=== PATIENT | female | born 1960 | race Caucasian/White ===

== ENCOUNTER 2018-02-26 12:31 | Outpatient (REF) | payer OTHER, SELFPAY ==
--- NOTE | 2018-02-26 09:30 | PAPFT_PTH ---
PATIENT: Nessa Iqbal LOC: [facility] U#:[id number] AGE/SX: 57/F ROOM: RE02/26/[address]: Margi John : 1960 BED: DIS: 02/26/2018 SPEC #: [id number] RECD: 02/26/18 13:02 STATUS: SERENA RECaro #: [id number] GENE: 02/26/18 09:[address]: Margi John DEPT: [facility] Cytology RECD BY: Virgen García Tissues: 1 - CX/ENDOCX FOR PAP SMEARS Procedures: PAP THIN PREP/UVM Screening Comments: [id number] (UNSATISFACTORY FOR EVALUATION)
== END 2018-02-26 12:32 ==
LOC: NCHCN 12:31
PROVIDERS: PCP Family Medicine; Visit Provider Family Medicine
DX: Z00.00 Encounter for general adult medical examination without abnormal findings (principal); Z12.4 Encounter for screening for malignant neoplasm of cervix; Z11.51 Encounter for screening for human papillomavirus (HPV); Z01.419 Encounter for gynecological examination (general) (routine) without abnormal findings
CPT/HCPCS: 88142; 87624

== ENCOUNTER 2018-04-03 00:22 | Outpatient (CLI) | payer OTHER, SELFPAY ==
--- NOTE | 2018-04-03 15:43 | DI.MAMMO_ITS ---
SYMPTOMS/DIAGNOSIS: SCREENING, Z12.31 MAMMOGRAM: Mammograms were interpreted according to the usual protocol including computer analysis with CAD system, tomosynthesis and C view imaging. The breasts are heterogeneously dense. No dominant mass or clumped microcalcification is identified in either breast. Current examination is compared with the previous examinations including February 2017 and there has been no gross interval change in appearance in comparison with the previous studies. CONCLUSION: No specific evidence of malignancy at this time. Routine screening examinations are suggested at yearly intervals in this age group according to the ACS/ACR guidelines. Category 1, breast density category C. MQSA ASSESSMENT OF FINDINGS: Negative. Category 1. Patient will receive a letter notifying them of these results. Bi-RADS category C. The breasts are heterogeneously dense, which may obscure small masses.
--- NOTE | 2018-04-03 16:12 | DI.DEXA_ITS ---
SYMPTOM/DIAGNOSIS: SCREENING FOR OSTEOPOROSIS IN POSTMENOPAUSAL WOMAN, Z78.0 DEXA SCAN: Dexa scan was performed according to the usual protocol. Please see the worksheets on PACS. Findings for left hip scanning are T score of -.6 with left femoral neck T score of -1.2. Findings for lumbar spine scanning are T score of -2.0. Findings for left forearm scanning are T score of -1.8. CONCLUSION: Findings consistent with osteopenia according to the WHO criteria. Lateral vertebral scanogram shows no evidence of a vertebral compression fracture.
== END 2018-04-03 00:42 ==
PROVIDERS: PCP Family Medicine; Visit Provider Family Medicine
DX: M85.88 Other specified disorders of bone density and structure, other site (principal); Z78.0 Asymptomatic menopausal state; Z12.31 Encounter for screening mammogram for malignant neoplasm of breast
CPT/HCPCS: 77063; 77067; 77080

== ENCOUNTER 2018-04-30 21:19 | Emergency (ER) | payer OTHER, SELFPAY ==
[2018-04-30 21:24] VITALS: BP 117/67; PULSE 50; RESP 16; TEMP 36.8; O2SAT 97
--- NOTE | 2018-04-30 21:41 | ED.GENADUL_ITS ---
Discharge Plan Disposition Patient Disposition: HOME Condition: Good Discharge Details Chief Complaint: Orthopedic Clinical Impression: Hematoma Primary Care Provider: Margi John ED Provider: Rl Salcido Home Meds and New Rx's Prescriptions: Continue multivitamin Tablet 2 tab PO BID RF: 0 calcium carbonate-vitamin D3 [Calcium 500 + D (D3)] 500 mg(1,250mg) -125 unit Tablet 1 tab PO QID RF: 0 grape seed extract 50 mg Tablet 3 tab PO DAILY RF: 0 glucosamine sulfate [Glucosamine] 500 mg Tablet 1 tab PO BID RF: 0 omega-3 fatty acids [Fish Oil Concentrate] 1,000 mg Capsule 2 cap PO BID RF: 0 Discharge Instructions Instructions: Hematoma (ED) Additional Instructions: Feel free to return to the for any new or worsening symptoms otherwise apply ice and take [id number] Tylenol as needed for discomfort. If not improving over the next week feel free to follow-up with your primary care provider or the emergency department if you feel that there is any significant concern. Referrals: Margi John [Primary Care Provider] - (As needed for reassessment) Discharge Data Discharge Date/Time-TO BE ENTERED AT DEPARTURE: 04/30/18 21:58 Medical Decision Making Patient presenting to the emergency department for chief complaint of right thumb pain. Patient states yesterday she had been working in the yard and raking in which she took off her gloves she noticed some bruising to the distal joint of the thumb. Then throughout today she has noticed more swelling and bruising to the thumb. Patient denies any injury or known trauma. Physical exam does show some bruising to the palmar aspect of the thumb but patient has full range of motion, normal tendon exam, normal sensation, normal cap refill. 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 Patient was encouraged to apply ice and take [id number] Tylenol as needed for discomfort. After discussion of diagnosis and plan of care patient has no further needs, questions , or concerns and states clear understanding to return to the emergency department for any worsening symptoms. HPI General Mode of arrival: ambulatory . Date/Time Provider Initiated Documentation: 04/30/18 21:25 . Limitations to Documentation: no limitations . Information obtained by: patient . History of Present Illness 57 year old F presents to the emergency department with the chief complaint of right thumb pain, described as moderate, with intensity rated at 6. Quality is described as aching, and is localized to the right and upper extremity. Patient started experiencing this day(s) (1) and it has been constant. No exacerbating factors reported . Patient notes no other symptoms.. Patient did receive the following treatments prior to arrival, none Related Data Home Medications Medication Instructions Recorded Confirmed calcium carbonate-vitamin D3 1 tab PO QID 04/30/18 [Calcium 500 + D (D3)] glucosamine sulfate [Glucosamine] 1 tab PO BID 04/30/18 grape seed extract 3 tab PO DAILY 04/30/18 multivitamin 2 tab PO BID 04/30/18 04/30/18 omega-3 fatty acids [Fish Oil 2 cap PO BID 04/30/18 Concentrate] Allergies Allergy/AdvReac Type Severity Reaction Status Date / Time No Known Allergies Allergy Unverified 04/30/18 21:27 General Stated Complaint: Orthopedic KRISTINA: 4 Review of Systems Constitutional Denies body ache(s), Denies chills and Denies fever(s) Cardiovascular Denies chest pain Musculoskeletal Reports as per HPI Integumentary/Breasts Denies rash Neurologic Denies sensory deficit Hematologic/Lymphatic Denies easy bleeding and Denies easy bruising PFSH Social History Smoking/Tobacco Use Status: Never Exam Const General: cooperative, no acute distress and not ill appearing Orientation: alert, awake and oriented x3 HENMT Mouth: moist mucous membranes Resp Effort & Inspection: normal respiratory effort, able to speak in complete sentences and no respiratory distress Cardio Rate: regular rate Rhythm: regular rhythm Skin General skin exam: no rashes or lesions noted Neuro General: alert, awake, oriented x3, moves all extremities and no focal motor deficits Sensory Exam: no sensory deficits noted Extrem Right upper extremity: elbow/forearm Details: normal to inspection and normal ROM; no tenderness, wrist Details: normal to inspection and normal ROM; no tenderness and hand Details: neuromotor exam normal, neurosensory exam normal, tendon exam normal, tenderness Location: of the thumb, normal ROM of fingers and ecchymosis Location: of the thumb Location: on the palmar aspect Course Vital Signs Temperature 36.8 C 04/30/18 21:24 Pulse 50 L 04/30/18 21:24 Respiratory Rate 16 04/30/18 21:24 Blood Pressure 117/67 04/30/18 21:24 Pulse Oximetry 97 04/30/18 21:24 Temperature 36.8 C 04/30/18 21:24 Temperature Source Skin 04/30/18 21:24 Pulse 50 L 04/30/18 21:24 Respiratory Rate 16 04/30/18 21:24 Respiratory Effort Non-Labored 04/30/18 21:25 Blood Pressure 117/67 04/30/18 21:24 Blood Pressure Position Sitting 04/30/18 21:24 Pulse Oximetry 97 04/30/18 21:24 Oxygen Delivery Method Room Air 04/30/18 21:24 Oxygen Flow Rate 0 04/30/18 21:24 Pain Level 6 04/30/18 21:24
== END 2018-04-30 21:58 | disposition home or self-care (01) ==
PROVIDERS: Emergency Provider Nurse Practitioner Family; PCP Family Medicine
DX: S60.111A Contusion of right thumb with damage to nail, initial encounter (principal); X50.9XXA Other and unspecified overexertion or strenuous movements or postures, initial encounter
CPT/HCPCS: 99282

== ENCOUNTER 2019-04-25 16:08 | Outpatient (REF) | payer OTHER, SELFPAY ==
--- NOTE | 2019-04-25 15:15 | PAPFT_PTH ---
PATIENT: Nessa Iqbal LOC: [facility] U#:[id number] AGE/SX: 58/F ROOM: RE04/25/[address]: Margi John : 1960 BED: DIS: 04/25/2019 SPEC #: [id number] RECD: 04/26/19 12:48 STATUS: SERENA RECaro #: [id number] GENE: 04/25/19 15:[address]: Margi John DEPT: [facility] Cytology RECD BY: Virgen García Tissues: 1 - CX/ENDOCX FOR PAP SMEARS Procedures: PAP THIN PREP/UVM Screening Comments: [id number] (UNSATISFACTORY FOR EVALUATION)
== END 2019-04-25 16:28 ==
LOC: NCHCN 16:08
PROVIDERS: PCP Family Medicine; Visit Provider Family Medicine
DX: Z00.00 Encounter for general adult medical examination without abnormal findings (principal); Z12.4 Encounter for screening for malignant neoplasm of cervix; Z11.51 Encounter for screening for human papillomavirus (HPV)
CPT/HCPCS: 88142; 87624

== ENCOUNTER 2019-05-23 03:01 | Outpatient (CLI) | payer OTHER, SELFPAY ==
--- NOTE | 2019-05-23 09:15 | DI.MAMMO_ITS ---
EXAM: MAMMO SCREENING CLINICAL HISTORY: SCREENING, Z12.31 TECHNIQUE: Mammograms were interpreted according to the usual protocol including computer analysis w [employer] CAD system, tomosynthesis and C-view imaging. COMPARISON: March 2018 FINDINGS: The breasts are heterogeneously dense. No dominant mass or clumped microcalcification is identified in either breast. The current examination is compared with previous examinations including March 2018 and there has been no gross interval change in appearance in comparison with previous studies. IMPRESSION: No specific evidence of malignancy at this time. Routine screening examinations are suggested at year ly intervals in this age group according to the ACS ACR guidelines. Category 1, breast density catego ry C. BI-RADS Cat 1 - Negative Breast Density - Category C - Heterogeneously dense
== END 2019-05-23 03:21 ==
PROVIDERS: PCP Family Medicine; Visit Provider Family Medicine
DX: Z12.31 Encounter for screening mammogram for malignant neoplasm of breast (principal)
CPT/HCPCS: 77063; 77067

== ENCOUNTER 2019-07-04 08:09 | Day surgery (SDC) | payer OTHER, SELFPAY ==
[2019-07-04 08:26] VITALS: BP 113/72; PULSE 62; RESP 16; TEMP 36.7; O2SAT 100
[2019-07-04] MEDS: Lactated Ringers 1,000 ML 80 ML IV (08:40)
--- NOTE | 2019-07-04 10:19 | BOWEL_PTH ---
PATIENT: Nessa Iqbal LOC: [facility] U#:[id number] AGE/SX: 58/F ROOM: RE07/04/[address]: Mary Willoughby : 1960 BED: DIS: 07/04/2019 SPEC #: [id number] RECD: 07/04/19 13:05 STATUS: SERENA REQ #: [id number] GENE: 07/04/19 10:[address]: Mary Willoughby DEPT: Surgical Specimen RECD BY: Virgen García ENTERED: 07/04/19 13:06 SP TYPE: Bowel OTHR DR: Margi John Tissues: 1 - BIOPSY BOWEL Procedures: GROSS AND MICRO LEVEL 4 Comments: [id number]
--- NOTE | 2019-07-04 10:56 | W.COLOREPORT ---
Date of service: 07/04/19 Time of Service: 10:56 Colonoscopy Report Date of procedure: 07/04/19 Pre-op diagnosis general: crc screen Post-op diagnosis procedure note: other Procedure: ce adn cold polyp removal in rectun Surgeon: Mary Willoughby Anesthesia proc note operative: GETA Pathology: other Disposition: same day Prep: Miralax/Dulcolax Retraction Time: 14 mins Procedure Description: After informed consent was obtained the patient was taken to the procedure room and placed in a left decubitous position. Monitors were applied and a time out was done. The patients name, date of , procedure, allergies to medications and metal in their body was reviewed. The patient was then sedated. Once sedated and comfortable a rectal exam was done. External exam was normal. Internal exam revealed a normal sphincter tone and no palpable masses. The scope was then introduced and retrofelexed. Old hemorrhoidal tags. no active internal hemorrhoids were identified. The scope was then advanced to the cecum w/ out difficulty. There were no diverticuli or AVMs apparent. The mucosa and vasculature appears pink and healthy/normal the TI and appendiceal orifice were identified. The prep was poor- thick w/ fibrous debris. lesions smaller than 5mm may have been missed. The scope was then slowly retracted over 14 minutes back into the rectum. Polyps were removed - there was a small polyp in the rectum that was removed with a cold biting forcep. All specimens retrieved no bleeding is noted. The scope was removed and the patient was woken up and taken back to Same day surgery in stable condition. The patient tolerated the procedure well and there were no immediate complications. Follow up: The patient should follow up in [] years unless they develop changes in bowel habits or other new gastrointestinal complaints.
--- NOTE | 2019-07-04 10:57 | W.PM.DSUDISC ---
Discharge Plan Disposition Patient Disposition: HOME Condition: Good Discharge Details Reason For Visit: colon scope Attending Provider: Mary Willoughby Primary Care Provider: Margi John Home Meds and New Rx's Prescriptions: Continued multivitamin Tablet 2 tab PO BID RF: 0 calcium carbonate-vitamin D3 [Calcium 500 + D (D3)] 500 mg(1,250mg) -125 unit Tablet 1 tab PO QID RF: 0 grape seed extract 50 mg Tablet 3 tab PO DAILY RF: 0 glucosamine sulfate [Glucosamine] 500 mg Tablet 1 tab PO BID RF: 0 omega-3 fatty acids [Fish Oil Concentrate] 1,000 mg Capsule 2 cap PO BID RF: 0 Discontinued polyethylene glycol 3350 17 gram/dose powder 238 g PO ONCE Qty: 238 RF: 0 bisacodyl [Dulcolax (bisacodyl)] 5 mg tablet,delayed release (DR/EC) 5 mg PO ONCE Qty: 4 RF: 0 polyethylene glycol 3350 17 gram/dose powder 238 g PO ONCE Qty: 238 RF: 0 bisacodyl [Dulcolax (bisacodyl)] 5 mg tablet,delayed release (DR/EC) 5 mg PO ONCE Qty: 4 RF: 0 Discharge Instructions Additional Instructions: Findings: small polyp in rectum. Will send a letter in 2-3 wks w/ results and when to repeat C scope. Probably in 10 yrs time. Follow up: Please call if you develop: fevers >101.5 Nausea or Vomiting Abdominal pain that is not transient DAY SURGERY UNIT POST COLONOSCOPY INSTRUCTIONS 1. Because there will be medication in your system for the next 24 hours, you may feel a little sleepy. Your coordination will be affected. Therefore: a. Do not drive or operate dangerous equipment for 24 hours. b. Do not drink alcohol beverages for 24 hours (not even beer). c. Plan to go home and rest for the day. 2. Generally there are no restrictions on your activity after a day or so has gone by, but you may feel a bit fatigued for a few days. 3 After you arrive home you may have a light meal and return to a normal diet as you can tolerate it without feeling sick to your stomach. 4. After surgery, you may feel pain or discomfort. This should be only transient, but if it persists please contact your doctor. 5. If there are any questions regarding the findings of your procedure, please feel free to contact your doctor. 6. If you are unable to contact your doctor with a problem, contact the hospital at [phone]. 7. Continue all your regular medications unless directed otherwise. I understand the above instructions and have no questions. Signature of Patient or Responsible Adult Escort Date/Time Name of Responsible Adult Escort Signature of Nurse Date/Time Activity:: No strenuous activity or heavy lifting x24 hours Diet:: Small light meals for 24 hours Discharge Orders Discharge Orders: Discharge Order (Routine); Ordered 07/04/19 Ordered By: Mary Willoughby
[2019-07-04 11:26] VITALS: BP 119/70; PULSE 55; RESP 16; TEMP 36.1; O2SAT 100
== END 2019-07-04 12:00 | disposition home or self-care (01) ==
PROVIDERS: PCP Family Medicine; Visit Provider Surgery
PROC: 0DJD8ZZ Inspection of Lower Intestinal Tract, Via Natural or Artificial Opening Endoscopic (ICD-10-PCS; CPT 45378; principal; 2019-07-04 09:15)
DX: Z12.11 Encounter for screening for malignant neoplasm of colon (principal); K62.1 Rectal polyp
CPT/HCPCS: 45380; 88305

== ENCOUNTER 2019-07-24 11:19 | Outpatient (REF) | payer BC, SELFPAY ==
--- NOTE | 2019-07-24 09:00 | PAPFT_PTH ---
PATIENT: Nessa Iqbal [id number] AGE/SX: 58/F ROOM: RE07/24/[address]: Margi John : 1960 BED: DIS: 07/24/2019 SPEC #: [id number] RECD: 07/24/19 12:55 STATUS: SERENA RECaro #: [id number] GENE: 07/24/19 09:[address]: Margi John DEPT: [facility] Cytology RECD BY: Virgen García Tissues: 1 - CX/ENDOCX FOR PAP SMEARS Procedures: PAP THIN PREP/UVM Screening Comments: [id number] (UNSATISFACTORY FOR EVALUATION)
== END 2019-07-24 11:39 ==
LOC: NCHCN 11:19
PROVIDERS: PCP Family Medicine; Visit Provider Family Medicine
DX: Z00.00 Encounter for general adult medical examination without abnormal findings (principal); Z12.4 Encounter for screening for malignant neoplasm of cervix; Z11.51 Encounter for screening for human papillomavirus (HPV); Z01.419 Encounter for gynecological examination (general) (routine) without abnormal findings
CPT/HCPCS: 88142; 87624

== ENCOUNTER 2020-03-30 13:45 | Outpatient (REF) | payer BC, SELFPAY ==
[2020-04-02 13:36] LABS: Patient Race White; SARS-CoV-2 RNA Undetected (Undetected); SARS-CoV-2 Specimen Source Nasal
== END 2020-03-30 14:05 ==
LOC: NCHCN 13:45
PROVIDERS: PCP Family Medicine; Visit Provider Family Medicine
DX: Z20.828 Contact with and (suspected) exposure to other viral communicable diseases (principal)
CPT/HCPCS: U0003

== ENCOUNTER 2020-04-22 11:55 | Outpatient (REF) | payer BC, SELFPAY ==
[2020-04-22 22:05] LABS: HCT 38.8 % (36.0-46.0); HGB 12.6 g/dL (11.2-15.7); MCH 30.2 pg (27.0-33.0); MCHC 32.5 % (32.0-36.0); MPV 10.2 fL (8.0-11.0); Platelet Count 234 10^3/uL (130-400); RBC 4.17 10^6/uL (3.93-5.22); RDW 13.1 % (11.7-14.6); RDW-SD 44.1 fL; WBC 6.06 10^3/uL (4.4-10.8)
[2020-04-22 22:21] LABS: ALT 38 U/L (14-59); AST 26 U/L (15-37); Albumin 3.8 g/dL (3.4-5.0); Alkaline Phosphatase 63 U/L (46-116); Anion Gap 4.8 mmol/L (3-11); BUN 16 mg/dL (7-18); Bilirubin, Total 0.5 mg/dL (0.2-1.0); CO2 31.2 mmol/L (21.0-32.0); CREATININE 0.63 mg/dL (0.55-1.02); Calcium 9.2 mg/dL (8.5-10.1); Calculated LDL 106 mg/dL (<100); Chloride 107 mmol/L (98-107); Cholesterol 209 mg/dL (<200); Glucose 86 mg/dL (74-106); HDL Cholesterol 98 mg/dL (40-60); Potassium 4.6 mmol/L (3.5-5.1); Sodium 143 mmol/L (136-145); Total Protein 6.6 g/dL (6.4-8.2); Triglyceride 26 mg/dL (<150)
== END 2020-04-22 12:15 ==
LOC: NCHCN 11:55
PROVIDERS: PCP Family Medicine; Visit Provider Family Medicine
DX: Z00.00 Encounter for general adult medical examination without abnormal findings (principal); M85.80 Other specified disorders of bone density and structure, unspecified site; Z13.220 Encounter for screening for lipoid disorders; Z13.228 Encounter for screening for other metabolic disorders
CPT/HCPCS: 80053; 80061; 82306; 85027

== ENCOUNTER 2020-05-27 01:56 | Outpatient (CLI) | payer BC, SELFPAY ==
--- NOTE | 2020-05-27 | DI.MAMMO_ITS ---
EXAM: MG MAMMO SCREENING CLINICAL HISTORY: SCREENING,Z12.31 TECHNIQUE: Bilateral full field digital CC and MLO mammographic images were obtained with 3D tomosyn thesis and utilizing computer aided detection (CAD). COMPARISON: Available for comparison. FINDINGS: Masses/Architectural Distortion: None seen. Microcalcifications: No suspicious pleomorphic-type are seen. Skin Thickening/Nipple Retraction: None. IMPRESSION: 1. No significant interval change with no specific features of malignancy noted. 2. Unless there is more urgent need, screening mammography is recommended, as per [place] [employer] guidelines. BI-RADS Category 1 - Negative Breast Density - Category C - Heterogeneously dense The mammogram demonstrates the patient's breast tissue is dense. Dense breast tissue is very common a nd is not abnormal but dense breast tissue can make it harder to find cancer on a mammogram. Also, de nse breast tissue may increase their breast cancer risk. This information about the result of the [facility] mogram report was provided to the patient to raise their awareness. Use this report when you speak wi th the patient about their risks for breast cancer, which includes their family history. At that time , you may recommend for more screening tests (Ultrasound or MRI) as they might be useful based on the ir risk. A negative radiographic report should not delay biopsy if a dominant or clinically suspicious mass is present. Up to ten percent of cancers are not identified on mammography. A negative report may reinforce clinical impression. Adenosis and dense breasts may obscure an underlying neoplasm. False positive reports average 6 to 10%. Patient will receive a letter notifying them of these results.
== END 2020-05-27 02:16 ==
PROVIDERS: PCP Family Medicine; Visit Provider Family Medicine
DX: Z12.31 Encounter for screening mammogram for malignant neoplasm of breast (principal)
CPT/HCPCS: 77063; 77067

== ENCOUNTER 2021-05-05 13:54 | Outpatient (REF) | payer BC, SELFPAY ==
--- NOTE | 2021-05-05 10:00 | PAPFT_PTH ---
PATIENT: Nessa Iqbal LOC: [facility] U#:[id number] AGE/SX: 60/F ROOM: RE05/05/[address]: Margi John : 1960 BED: DIS: 05/05/2021 SPEC #: [id number] RECD: 05/06/21 12:57 STATUS: SERENA RECaro #: [id number] GENE: 05/05/21 10:[address]: Margi John DEPT: [facility] Cytology RECD BY: Virgen García Tissues: 1 - CX/ENDOCX FOR PAP SMEARS Procedures: PAP THIN PREP/UVM Screening HPV DNA PROBE Comments: [id number]
== END 2021-05-05 13:55 | disposition home or self-care (01) ==
LOC: NCHCN 13:54
PROVIDERS: PCP Family Medicine; Visit Provider Family Medicine
DX: Z12.4 Encounter for screening for malignant neoplasm of cervix (principal); Z01.419 Encounter for gynecological examination (general) (routine) without abnormal findings; Z11.51 Encounter for screening for human papillomavirus (HPV)
CPT/HCPCS: 88142; 87624

== ENCOUNTER 2022-03-24 17:52 | Outpatient (REF) | payer OTHER, SELFPAY ==
[2022-03-28 12:01] LABS: Lyme Ab w Rflx to Lyme Confirm Positive (Negative)
[2022-03-28 13:37] LABS: Lyme IgG Ab Negative (Negative); Lyme IgM Ab Positive (Negative)
== END 2022-03-24 17:53 | disposition home or self-care (01) ==
LOC: NCHCN 17:52
PROVIDERS: PCP Family Medicine; Visit Provider Nurse Practitioner Family
DX: R21 Rash and other nonspecific skin eruption (principal)
CPT/HCPCS: 86617; 86618

== ENCOUNTER 2022-05-19 15:19 | Outpatient (REF) | payer OTHER, SELFPAY ==
[2022-05-19 19:04] LABS: Vitamin D 25 Total 71.6 ng/mL (30-100)
[2022-05-19 19:09] LABS: TSH (W/Ref FT4) 1.44 uIU/mL (0.36-3.74); Vitamin B12 1151 pg/mL (193-986)
== END 2022-05-19 15:20 | disposition home or self-care (01) ==
LOC: NCHCN 15:19
PROVIDERS: PCP Family Medicine; Visit Provider Nurse Practitioner Family
DX: Z00.00 Encounter for general adult medical examination without abnormal findings (principal); E55.9 Vitamin D deficiency, unspecified; N39.3 Stress incontinence (female) (male); G60.9 Hereditary and idiopathic neuropathy, unspecified; G47.8 Other sleep disorders; M85.80 Other specified disorders of bone density and structure, unspecified site; G44.229 Chronic tension-type headache, not intractable
CPT/HCPCS: 82306; 82607; 84443

== ENCOUNTER → 2022-07-08 00:07 | Outpatient (CLI) | payer OTHER, SELFPAY ==
--- NOTE | 2022-07-08 | DI.DEXA_ITS ---
Exam(s) XR DEXA BONE DENSITY W/WO LUIZ EXAM: XR DEXA BONE DENSITY W/WO LUIZ CLINICAL HISTORY: OSTEOPENIA, M85.80, VIT D DEFICIENCY,E55.9 TECHNIQUE: COMPARISON: Comparison is 04/03/2018. FINDINGS: Lateral Spine Image: Unremarkable. No compression deformities identified. Left hip: Total T-Score: -0.8. This compares to -0.6 on the prior examination. Total Z-Score: 0.4 T- and Z-scores: Within normal limits. Lumbar Spine: Total T-Score: -2.4. This compares to -2.0 on the prior examination. Total Z-Score: -0.7 T- and Z-scores: This is consistent with osteopenia. IMPRESSION: Findings of osteopenia in the lumbar spine.
--- NOTE | 2022-07-08 | DI.MAMMO_ITS ---
Exam(s) MAMMO SCREENING EXAM: MAMMO SCREENING CLINICAL HISTORY: SCREENING, Z12.39. TECHNIQUE: Bilateral full field digital CC and MLO mammographic images were obtained with 3D tomosyn thesis and utilizing computer aided detection (CAD). COMPARISON: Prior mammograms were reviewed. FINDINGS: The fibroglandular tissue pattern is again noted be moderately dense, this somewhat decreasing the se nsitivity of the mammogram for finding hidden underlying lesions. In the left breast on the CC view there is a subtle suggestion an asymmetric 8 x 6 millimeter density located 3 cm in from the nipple, possible nodule. No obvious new right breast findings. There are no malignant-appearing microcalcification groups in either breast. There is no significant architectural distortion nor skin thickening-retraction. IMPRESSION: Dense bilateral fibroglandular tissue. Possible left breast nodule. Spot compression CC view and co mplete breast ultrasound recommended. BI-RADS Category 0 - Assessment Incomplete: Need additional imaging evaluation Breast Density - Category C - Heterogeneously dense Breast density Category C or D implies that the patient has dense breast tissue. Dense breast tissue can make it harder to find cancer on a mammogram. Dense breast tissue is also associated with an incr eased risk of breast cancer. This information about the result of the mammogram report was provided to the patient to raise their awareness. Use this report when you speak with the patient about their risks for breast cancer, which includes their family history. At that time, you may recommend additional screening tests (Ultrasoun d or MRI) as these tests may add significant information. A negative radiographic report should not delay biopsy if a dominant or clinically suspicious mass is present. Up to ten percent of cancers are not identified on mammography. A negative report may reinforce clinical impression. Adenosis and dense breasts may obscure an underlying neoplasm. False positive reports average 6 to 10%. Patient will receive a letter notifying them of these results.
== END ==
PROVIDERS: PCP Family Medicine; Visit Provider Nurse Practitioner Family
DX: M85.88 Other specified disorders of bone density and structure, other site (principal); E55.9 Vitamin D deficiency, unspecified; Z12.31 Encounter for screening mammogram for malignant neoplasm of breast; R92.8 Other abnormal and inconclusive findings on diagnostic imaging of breast
CPT/HCPCS: 77063; 77067; 77080

== ENCOUNTER 2022-08-17 02:36 | Outpatient (CLI) | payer OTHER, SELFPAY ==
--- NOTE | 2022-08-17 | DI.MAMMO_ITS ---
Exam(s) MG MAMMO SCREEN CALL BACK UNI US BREAST LT COMPLETE EXAM: MAMMO SCREEN CALL BACK UNI CLINICAL HISTORY: F/U MAMMO, R92.8,SUBTLE ASYMMETRIC DENSITY, ? NODULE. TECHNIQUE: Craniocaudal and mediolateral oblique spot compression digital Mammography views of the l eftbreast with Tomosynthesis and left breast ultrasound. COMPARISON: Recent exam of 08 July 2022 and exams back to 2012. FINDINGS: Mammography/Tomosynthesis: Masses/Architectural Distortion: None seen. Microcalcifictions: No suspicious pleomorphic-type are seen. Skin Thickening/Nipple Retraction: None. Left breast US: Echotexture: Normal appearance of the glandular tissue. Shadowing: No suspicious foci. Cyst: None. Solid lesions: None seen. Ductal dilation: None. IMPRESSION: 1. No evidence of malignancy is noted. 2. Unless there is more urgent need, follow-up screening mammography is recommended, as per [place] [employer] guidelines. 3. The findings were discussed with the patient on the date of the examination. BI-RADS Category 1 - Negative Breast Density - Category C - Heterogeneously dense A mammogram that demonstrates density of C or D indicates the patient's breast tissue is dense. Dense breast tissue is very common and is not abnormal, but dense breast tissue can make it harder to find cancer on a mammogram. Also, dense breast tissue may increase their breast cancer risk. This informa tion about the result of the mammogram report was provided to the patient to raise their awareness. U se this report when you speak with the patient about their risks for breast cancer, which includes th eir family history. At that time, you may recommend for more screening tests (Ultrasound or MRI) as t hey might be useful based on their risk. A negative radiographic report should not delay biopsy if a dominant or clinically suspicious mass is present. Up to ten percent of cancers are not identified on mammography. A negative report may reinforce clinical impression. Adenosis and dense breasts may obscure an underlying neoplasm. False positive reports average 6 to 10%. Patient will receive a letter notifying them of these results.
== END 2022-08-17 02:56 ==
PROVIDERS: PCP Nurse Practitioner Family; Visit Provider Nurse Practitioner Family
DX: Z12.31 Encounter for screening mammogram for malignant neoplasm of breast (principal); R92.8 Other abnormal and inconclusive findings on diagnostic imaging of breast
CPT/HCPCS: 76642; 77063; 77067

== ENCOUNTER 2022-12-29 15:34 | Outpatient (CLI) | payer OTHER, SELFPAY ==
[2022-12-29 15:39] LABS: Hemoglobin A1C 5.2 % (<5.7)
[2022-12-29 15:51] LABS: ALT 31 U/L (14-59); AST 25 U/L (15-37); Albumin 3.6 g/dL (3.4-5.0); Alkaline Phosphatase 70 U/L (46-116); Anion Gap 7.9 mmol/L (3-11); BUN 16 mg/dL (7-18); Bilirubin, Total 0.5 mg/dL (0.2-1.0); CO2 29.1 mmol/L (21.0-32.0); CREATININE 0.7 mg/dL (0.55-1.02); Calcium 8.9 mg/dL (8.5-10.1); Chloride 107 mmol/L (98-107); Estimated GFR 96.52 (mL/min/1.73m2); Glucose 100 mg/dL (74-106); Potassium 4.1 mmol/L (3.5-5.1); Sodium 144 mmol/L (136-145); Total Protein 6.9 g/dL (6.4-8.2)
[2022-12-30 12:55] LABS: Albumin 63.8 % (55.8-66.1); Albumin g/dL 4.1 g/dL (3.6-5.2); Total Protein 6.4 g/dL (6.3-8.2)
== END 2022-12-29 15:35 | disposition home or self-care (01) ==
LOC: LBO 15:34
PROVIDERS: PCP Nurse Practitioner Family; Visit Provider Psychiatry & Neurology Neurology
DX: G62.9 Polyneuropathy, unspecified (principal); R73.9 Hyperglycemia, unspecified
CPT/HCPCS: 36415; 80053; 83036; 84165

== ENCOUNTER 2023-05-25 10:23 | Outpatient (REF) | payer OTHER, SELFPAY ==
[2023-05-25 14:59] LABS: Absolute Basophil Count 0.06 10^3/uL (0.0-0.2); Absolute Eosinophil Count 0.07 10^3/uL (0.0-0.7); Absolute Lymphocyte Count 1.12 10^3/uL (1.2-3.4); Absolute Neutrophil Count 1.94 10^3/uL (1.2-6.7); Basophils % 1.7; HCT 38.3 % (36.0-46.0); HGB 12.7 g/dL (11.2-15.7); Lymphocytes % 32.1; MCH 30.8 pg (27.0-33.0); MCHC 33.2 % (32.0-36.0); MCV 93 fL (80-95); MPV 10.5 fL (8.0-11.0); Monocytes % 8.6; Neutrophils % 55.6; Platelet Count 262 10^3/uL (130-400); RBC 4.13 10^6/uL (3.93-5.22); RDW 13.3 % (11.7-14.6); RDW-SD 45.6 fL; WBC 3.49 10^3/uL (4.4-10.8)
[2023-05-25 15:35] LABS: Iron 103 ug/dL (50-170); Total Iron Binding Capacity 366 ug/dL (250-450); Transferrin Sat 28 % (15-50)
[2023-05-25 15:47] LABS: ALT 35 U/L (14-59); AST 31 U/L (15-37); Albumin 3.9 g/dL (3.4-5.0); Alkaline Phosphatase 65 U/L (46-116); BUN 16 mg/dL (7-18); Bilirubin, Total 0.6 mg/dL (0.2-1.0); CREATININE 0.6 mg/dL (0.55-1.02); Calcium 9.8 mg/dL (8.5-10.1); Chloride 106 mmol/L (98-107); Estimated GFR 100.17 (mL/min/1.73m2); Ferritin 29 ng/mL (8-252); Glucose 94 mg/dL (74-106); Magnesium 2.4 mg/dL (1.8-2.4); Potassium 4.4 mmol/L (3.5-5.1); Sodium 141 mmol/L (136-145); TSH (W/Ref FT4) 1.76 uIU/mL (0.36-3.74); Vitamin B12 1322 pg/mL (193-986)
[2023-05-26 11:08] LABS: Lyme Ab w Rflx to Lyme Confirm Positive (Negative)
[2023-05-26 14:53] LABS: Lyme IgG Ab Positive (Negative); Lyme IgM Ab Positive (Negative)
[2023-05-27 14:18] LABS: Anaplasma phagocytophilum Negative (Negative); B. miyamotoi PCR Negative (Negative); Babesia divergens/MO-1 Negative (Negative); Babesia duncani Negative (Negative); Babesia microti Negative (Negative); Ehrlichia chaffeensis Negative (Negative); Ehrlichia ewingii/canis Negative (Negative); Ehrlichia muris eauclairensis Negative (Negative)
== END 2023-05-25 10:24 | disposition home or self-care (01) ==
LOC: NCHCN 10:23
PROVIDERS: PCP Nurse Practitioner Family; Visit Provider Nurse Practitioner Family
DX: Z00.00 Encounter for general adult medical examination without abnormal findings (principal); R53.83 Other fatigue; G47.62 Sleep related leg cramps; G47.8 Other sleep disorders; G44.229 Chronic tension-type headache, not intractable; R10.13 Epigastric pain; G62.9 Polyneuropathy, unspecified
CPT/HCPCS: 80053; 86617; 87798; 82607; 82728; 83540; 83550; 83735; 84443; 85025; 86618

== ENCOUNTER → 2023-07-11 01:20 | Outpatient (CLI) | payer OTHER, SELFPAY ==
--- NOTE | 2023-07-11 | DI.MAMMO_ITS ---
Exam(s) MAMMO SCREENING EXAM: MAMMO SCREENING CLINICAL HISTORY: SCREENING MAMMO FOR BREAST CANCER Z12.39 TECHNIQUE: Bilateral full field digital CC and MLO mammographic images were obtained with 3D tomosyn thesis and utilizing computer aided detection (CAD). COMPARISON: 2013 through 2021 FINDINGS: Masses/Architectural Distortion: None seen. Microcalcifications: No suspicious pleomorphic-type are seen. Skin Thickening/Nipple Retraction: None. IMPRESSION: 1. No significant interval change with no specific features of malignancy noted. 2. Unless there is more urgent need, screening mammography is recommended, as per [place] [employer] guidelines. BI-RADS Category 1 - Negative Breast Density - Category C - Heterogeneously dense Breast density category C or D implies that the patient has dense breast tissue. Dense breast tissue is very common and is not abnormal but dense breast tissue can make it harder to find cancer on a ma mmogram. Also, dense breast tissue may increase their breast cancer risk. This information about the result of the mammogram report was provided to the patient to raise their awareness. Use this report when you speak with the patient about their risks for breast cancer, which includes their family hist ory. At that time, you may recommend for more screening tests (Ultrasound or MRI) as they might be us eful based on their risk. A negative radiographic report should not delay biopsy if a dominant or clinically suspicious mass is present. Up to ten percent of cancers are not identified on mammography. A negative report may reinforce clinical impression. Adenosis and dense breasts may obscure an underlying neoplasm. False positive reports average 6 to 10%. Patient will receive a letter notifying them of these results.
== END ==
PROVIDERS: PCP Nurse Practitioner Family; Visit Provider Nurse Practitioner Family
DX: Z12.31 Encounter for screening mammogram for malignant neoplasm of breast (principal)
CPT/HCPCS: 77063; 77067

== ENCOUNTER 2023-08-29 08:22 | Outpatient (CLI) | payer OTHER, SELFPAY | END 2023-08-29 08:23 | disposition home or self-care (01) | LOC: CARDOPNVT 08:22 | PROVIDERS: PCP Nurse Practitioner Family; Visit Provider Nurse Practitioner Family | DX: R07.89 Other chest pain (principal) | CPT/HCPCS: 93246 ==

== ENCOUNTER → 2023-09-07 00:01 | Outpatient (CLI) | payer OTHER, SELFPAY ==
--- NOTE | 2023-09-07 | ETT_ITS ---
APPROVED REPORT Exam: Exercise Treadmill Patient Location: Out-Patient Room/Bed: Stress Nurse: Mario Collins RN Ordering Provider:RAJ MALONEY, Contact Number: [phone] BMI: 23.95 Baseline Rhythm: Sinus Bradycardia Indications: Decreased BP and HR. Chest pressure on exertion. Atypical Chest Pain. Medical History Medical History: No history of CAD Cardiac Medications: None Allergies: No known drug allergies Cardiac Risk Factors: FHX of CAD Pretest Chest Pain Characteristics: No chest pain Exercise History: Physically active Lung Sounds: Clear to auscultation Heart Sounds: Regular Stress Test Details Test: Exercise stress testing was performed using a Krishna protocol. Rest Stress HR Resting HR Supine: 58 bpm Max Heart Rate (APMHR): 156 bpm Resting HR Standin bpm Target HR (85% APMHR): 133 bpm Max HR Achieved: 136 bpm % of APMHR: 87 Recovery HR: 75 bpm HR response to stress: Normal HR response to stress BP Resting BP Supine: 128/80 mmHg Resting BP Standin/72 mmHg Max BP: 146/84 mmHg Recovery BP: 118/76 mmHg BP response to stress: Normal blood pressure response to stress. ECG Resting ECG: Sinus Bradycardia Ectopy: None Stress ECG: Sinus Tachycardia ST Change: Inferior (upsloping) Lead(s): II, III, aVF Stage: Recovery stage [address] Deviation: 1-2 mm Arrhythmia: VPC's, APC's Comment: Frequent unifocal PVC's during stress. Recovery ECG: Sinus Rhythm Recovery ST Change: Upsloping ST depression Lead(s): II, III, aVF,, V1, aVR, aVL, V5, V6 Recovery ST Deviation: 1-2 mm Recovery Arrhythmia: PVC's Brief Bigeminy Clinical Reason for Termination: Chest pain/Anginal equivalent, Dyspnea Stress Symptoms: Chest pressure. Exercise duration: 6 min57 sec Highest Stage Reached: 3 Exercise capacity: 8.5 METs Angina Score: Non-Limiting Mackey Treadmill Score: -1.0 Rate Pressure Product: Stress ECG Conclusion 1. Resting electrocardiogram was within normal limits 2. Patient exercised on Krishna protocol and completed a workload of 8.5 METS 3. Normal heart rate blood pressure response to exercise. Patient achieved 87% of predicted heart r ate for age 4. There was no electrocardiographic evidence of myocardial ischemia 5. PVCs were noted Mackey Treadmill Score is -1.0 which is Moderate risk. Stress Test Summary STAGE Time (mins) Speed (mph) Grade (%) HR BP SpO2 SYMPTOMS METS Supine 58 128/80 97 None Standing 59 102/72 None 1 3 1.7 10 115 90 None 4.5 2 6 2.5 12 132 90 PVC's 7 3 9 3.4 14 136 Chest pressure 10 1 min recovery 121 122/72 95 Chest pressure 3 min recovery 79 146/84 98 6 min recovery 76 118/76 97
== END ==
PROVIDERS: PCP Nurse Practitioner Family; Visit Provider Nurse Practitioner Family
DX: R00.1 Bradycardia, unspecified (principal)
CPT/HCPCS: 93017

== ENCOUNTER 2023-09-21 07:34 | Outpatient (CLI) | payer OTHER, SELFPAY ==
--- NOTE | 2023-09-21 09:55 | W.CARDEVENT ---
Date of service: 09/21/23 Time of Service: 09:55 Cardiac Event Recorder Referring Provider:: Charlee Paredes Indications:: . Chest pain Cardiac Event Note: This is a cardiac event monitor reportedly ordered for chest pain. Patient was monitored for 12 days and 17 hours rhythm throughout was sinus. Average heart rate was 64. Minimum was 43, maximum 123 There were rare isolated atrial and ventricular ectopic beats There was no atrial fibrillation no high-grade AV block no pauses greater than 3 seconds There were several brief self-limited atrial runs generally 3-4 beats in duration Patient symptoms were reported which had no correlation to any dysrhythmia
== END 2023-09-21 07:35 | disposition home or self-care (01) ==
LOC: CARDOPNVT 07:34
PROVIDERS: PCP Nurse Practitioner Family; Visit Provider Internal Medicine Cardiovascular Disease
DX: I49.1 Atrial premature depolarization (principal); R07.9 Chest pain, unspecified

== ENCOUNTER 2023-09-26 11:43 | Outpatient (CLI) | payer OTHER, SELFPAY ==
--- NOTE | 2023-09-26 11:30 | RT.EKG_ITS ---
APPROVED REPORT Exam: Resting ECG Reason for Exam: atypical chest pain, MITCHELL Patient Location: O HR:63 bpm ECG Measurements Heart Rate 63 AXIS ND 143 P 52 QRSd 93 QRS 16 QT 403 T 40 QTc 413 Conclusion Sinus rhythm...normal P axis, V-rate 50- 99 RSR' in V1 or V2
== END 2023-09-26 11:44 | disposition home or self-care (01) ==
LOC: DI.CARD 11:45
PROVIDERS: PCP Nurse Practitioner Family; Visit Provider Internal Medicine Cardiovascular Disease
DX: R00.1 Bradycardia, unspecified
CPT/HCPCS: 93010

== ENCOUNTER 2024-05-30 12:00 | Outpatient (REF) | payer MEDICARE, SELFPAY ==
--- NOTE | 2024-05-30 14:00 | PAPFT_PTH ---
PATIENT: Nessa Iqbal LOC: [facility] U#:[id number] AGE/SX: 63/F ROOM: RE05/30/[address]: Charlee Paredes : 1960 BED: DIS: 05/30/2024 SPEC #: [id number] RECD: 05/31/24 13:43 STATUS: SERENA REQ #: [id number] GENE: 05/30/24 14:[address]: Charlee Paredes DEPT: [facility] Cytology RECD BY: Virgen García Tissues: 1 - CX/ENDOCX FOR PAP SMEARS Procedures: PAP THIN PREP/UVM Screening HPV DNA PROBE Comments: [id number] (HPV 16 & 18/45)
== END 2024-05-30 12:01 | disposition home or self-care (01) ==
LOC: LBN 12:00
PROVIDERS: PCP Nurse Practitioner Family; Visit Provider Nurse Practitioner Family
DX: Z00.00 Encounter for general adult medical examination without abnormal findings (principal); Z12.4 Encounter for screening for malignant neoplasm of cervix
CPT/HCPCS: 88142; 87624

== ENCOUNTER 2024-07-15 01:47 | Outpatient (CLI) | payer MEDICARE, SELFPAY ==
--- NOTE | 2024-07-15 | DI.MAMMO_ITS ---
Exam(s) MAMMO SCREENING EXAM: MAMMO SCREENING CLINICAL HISTORY: Screening, Z12.31. TECHNIQUE: Bilateral full field digital CC and MLO mammographic images were obtained with 3D tomosyn thesis and utilizing computer aided detection (CAD). COMPARISON: Prior mammograms were reviewed. FINDINGS: Fibroglandular tissue pattern is again noted be moderately dense, this somewhat decreasing the sensit ivity of the mammogram for finding hidden underlying lesions. There are no new obvious right breast findings. In the left breast there is an oval noncalcified nodule located 2.5 cm in from the nipple on the CC v iew, measuring 1.1 x 0.7 cm. On the MLO view it appears to be at approximately 12 o'clock position. There are no malignant-appearing microcalcification groups in this region or elsewhere in either [address]. There is no significant architectural distortion nor skin thickening-retraction. IMPRESSION: Dense bilateral fibroglandular tissue. No radiographic evidence of malignancy in the right breast. Left breast nodular density as described above. Spot compression views and ultrasound recommended. BI-RADS Category 0 - Incomplete: Need additional imaging evaluation Breast Density - Category C - Heterogeneously dense Breast density Category C or D implies that the patient has dense breast tissue. Dense breast tissue can make it harder to find cancer on a mammogram. Dense breast tissue is also associated with an incr eased risk of breast cancer. This information about the result of the mammogram report was provided to the patient to raise their awareness. Use this report when you speak with the patient about their risks for breast cancer, which includes their family history. At that time, you may recommend additional screening tests (Ultrasoun d or MRI) as these tests may add significant information. A negative radiographic report should not delay biopsy if a dominant or clinically suspicious mass is present. Up to ten percent of cancers are not identified on mammography. A negative report may reinforce clinical impression. Adenosis and dense breasts may obscure an underlying neoplasm. False positive reports average 6 to 10%. Patient will receive a letter notifying them of these results.
== END 2024-07-15 02:07 ==
LOC: DI 01:47
PROVIDERS: PCP Nurse Practitioner Family; Visit Provider Nurse Practitioner Family
DX: Z12.31 Encounter for screening mammogram for malignant neoplasm of breast (principal); R92.333 Mammographic heterogeneous density, bilateral breasts
CPT/HCPCS: 77063; 77067

== ENCOUNTER 2024-07-22 03:02 | Outpatient (CLI) | payer MEDICARE, SELFPAY ==
--- NOTE | 2024-07-22 10:00 | DI.US_ITS ---
Exam(s) MG MAMMO SCREEN CALL BACK UNI US BREAST LT LIMITED EXAM: MG MAMMO SCREEN CALL BACK UNI and U/S breast LT limited CLINICAL HISTORY: 1.1 x 0.7 cm oval noncalcified nodule 2.5 cm from nipple, lt breast. TECHNIQUE: Craniocaudal and mediolateral oblique Full Field Digital Mammography views of the left br east with Computer Aided Diagnosis followed by Tomosynthesis and left breast ultrasound. COMPARISON: Comparison is made with prior examinations. FINDINGS: Mammography/Tomosynthesis: Masses/Architectural Distortion: The area does not persist on the craniocaudad view. The area on the left MLO view is less prominent compared to the prior examinations. No areas of architectural disto rtion are seen. Microcalcifictions: No suspicious pleomorphic-type are seen. Skin Thickening/Nipple Retraction: None. Limited left breast US: Echotexture: Normal appearance of the glandular tissue. Shadowing: No suspicious foci. Cyst: None. Solid lesions: None seen. Ductal dilation: There is a collection of mildly prominent ducts seen in the 12 o'clock position of t he left breast 3 cm from the nipple. They measure in aggregate 0.9 cm. IMPRESSION: 1. No evidence of malignancy is noted. 2. Unless there is more urgent need, follow-up screening mammography is recommended, as per [place] [employer] guidelines. 3. The findings were discussed with the patient on the date of the examination. BI-RADS Category 2 - Benign Findings Breast Density - Category C - Heterogeneously dense Breast density Category C or D implies that the patient has dense breast tissue. Dense breast tissue can make it harder to find cancer on a mammogram. Dense breast tissue is also associated with an incr eased risk of breast cancer. This information about the result of the mammogram report was provided to the patient to raise their awareness. Use this report when you speak with the patient about their risks for breast cancer, which includes their family history. At that time, you may recommend additional screening tests (Ultrasoun d or MRI) as these tests may add significant information. A negative radiographic report should not delay biopsy if a dominant or clinically suspicious mass is present. Up to ten percent of cancers are not identified on mammography. A negative report may reinforce clinical impression. Adenosis and dense breasts may obscure an underlying neoplasm. False positive reports average 6 to 10%. Patient will receive a letter notifying them of these results.
== END 2024-07-22 03:22 ==
LOC: DI 03:02
PROVIDERS: PCP Nurse Practitioner Family; Visit Provider Nurse Practitioner Family
DX: Z12.31 Encounter for screening mammogram for malignant neoplasm of breast (principal); N63.22 Unspecified lump in the left breast, upper inner quadrant
CPT/HCPCS: 76642; 77063; 77067

== ENCOUNTER → 2025-06-27 01:26 | Outpatient (CLI) | payer MEDICARE, SELFPAY ==
--- NOTE | 2025-06-27 13:40 | DI.DEXA_ITS ---
Exam(s) XR DEXA BONE DENSITY W/WO LUIZ EXAM: XR DEXA BONE DENSITY W/WO LUIZ CLINICAL HISTORY: OTHER SPECIFIED DISORDERS OF BONE DENSITY AND STRUCTURES, M85.88 TECHNIQUE: [employer] Horizon C densitometer analysis of left hip, lumbar spine and left forearm. Lateral survey image of the thoracic and lumbar spine. COMPARISON: DX XR DEXA BONE DENSITY W/WO LUIZ from 04/03/2018 CR XR DEXA BONE DENSITY W/WO LUIZ from 07/08/2022 FINDINGS: Lateral view of the thoracic and lumbar spine shows no evidence of compression fractures. Levoscoliosis. Bone mineral density measurements of the lumbar spine correspond to a total T- score of -2.1, in the osteopenic range. This represents a 4.9 percent increase from 2021 but is not significantly changed from 2018. Bone mineral density measurements of the left hip correspond to a total T-score of -0.4. This represents a 6.3 percent increase from 2021 and a 4 percent increase from 2018. The femoral neck T-score is -1.3, in the osteopenic range. Theleft forearm bone mineral density measurements correspond to a T-score of the distal 3rd of -2.8, in the osteoporotic range. This represents a 2.3 percent increase from 2021 but a 9.4 percent decrease from 2018. IMPRESSION: Osteopenia of the spine and hip. Osteoporosis of forearm.
== END ==
PROVIDERS: PCP Nurse Practitioner Family; Visit Provider Nurse Practitioner Family
DX: M85.88 Other specified disorders of bone density and structure, other site (principal)
CPT/HCPCS: 77080